=== PATIENT | female | born 1970 | race Caucasian/White ===

== ENCOUNTER → 2016-10-21 17:11 | Outpatient (CLI) | payer BC | END | disposition home or self-care (01) | LOC: D.MAMMO 15:15 | DX: Z12.31 Encounter for screening mammogram for malignant neoplasm of breast (principal) ==

== ENCOUNTER → 2017-02-24 10:27 | Outpatient (CLI) | payer BC | END | disposition home or self-care (01) | LOC: D.MRI 10:27 | DX: M54.31 Sciatica, right side (principal); M54.16 Radiculopathy, lumbar region ==

== ENCOUNTER → 2017-12-15 09:09 | Outpatient (CLI) | payer BC | END | disposition home or self-care (01) | LOC: D.NM 09:09 | DX: R10.11 Right upper quadrant pain (principal) ==

== ENCOUNTER → 2018-02-01 17:05 | Outpatient (CLI) | payer BC | END | disposition home or self-care (01) | LOC: D.CT 17:00 | DX: N28.1 Cyst of kidney, acquired (principal) ==

== ENCOUNTER → 2018-03-11 12:11 | Outpatient (CLI) | payer BC | END | disposition home or self-care (01) | LOC: D.LABREF 12:11 | DX: D72.829 Elevated white blood cell count, unspecified (principal); R31.9 Hematuria, unspecified ==

== ENCOUNTER → 2018-03-17 11:05 | Outpatient (CLI) | payer BC ==
[~2018-03-17 11:05] MED LIST: ADDERALL 30 MG30 MG PO; IBUPROFEN200 MG PO; INDERAL LA80 MG PO; MELATONIN5 MG PO; ROBAXIN500 MG PO
[2018-04-06 08:31] VITALS: BMI 34.0
== END | disposition home or self-care (01) ==
LOC: D.NM 11:05
DX: N13.0 Hydronephrosis with ureteropelvic junction obstruction (principal)

== ENCOUNTER 2018-04-06 07:09 | Day surgery (SDC) | payer BC ==
[~2018-04-06] VITALS: Ht 162.6 cm; Wt 89.8 kg
[2018-04-06 08:11] LABS: HEMATOCRIT 36.6 % (36.0-48.0); HEMOGLOBIN 11.9 g/dL (12-16); MCH 25.5 pg (26.0-34.0); MCHC 32.5 g/dL (31.0-37.0); MCV 78.5 fL (80.0-100.0); MEAN PLATELET VOLUME 9.3 fL (7.4-10.4); RBC 4.66 10x6/uL (4.00-5.40); RDW 15.9 % (11.5-14.5); WBC 7.2 10x3/uL (4.8-10.8)
[2018-04-06 08:31] VITALS: BP 135/79; Ht 162.6 cm; Wt 89.8 kg
[2018-04-06 08:47] LABS: HCG URINE NEGATIVE (NEGATIVE)
--- NOTE | 2018-04-06 13:23 | OP ---
PATIENT NAME: ASHLEY CIFUENTES MEDICAL RECORD: [id number] :66 LOCATION:[facility] ADMISSION DATE: SURGEON: DEMETRIUS SHELL MD DATE OF OPERATION: 04/06/2018 SURGEON: Demetrius Shell MD ANESTHESIA: TIVA by Matias Mistry CRNA DIAGNOSIS: Right ureteropelvic junction (UPJ) obstruction. PROCEDURES: Cystoscopy, right retrograde pyelogram and right ureteral stent insertion, 6-Bangladeshi x 24 cm, without string attached. FINDINGS: Very dilated right renal pelvis with calyceal blunting. Right ureteropelvic junction obstruction with a normal ureter. No ureteral filling defects. ESTIMATED BLOOD LOSS: None. CLINICAL HISTORY: This is a 47-year-old female who had episodic right flank pain. The CT scan showed a very large dilated right extrarenal pelvis with what appears to be a right UPJ obstruction. The radiologist read it as right parapelvic cysts. I do not agree with the radiologist's interpretation. I sent her for a Lasix renal scan. It shows differential GFR of 64% of the overall GFR being from the left kidney and the right kidney contributing 36% of the overall GFR. After Lasix there were signs of obstruction on the right kidney. She comes today to have cystoscopy and right retrograde pyelogram to better define the anatomy. Finally, I will insert a right ureteral stent if she has right UPJ obstruction. The plan is to send her to [place] to have a robotic dismembered pyeloplasty. The patient was given IV sedation. She is not allergic to any medications and she was given Ancef 2 grams IV home service demonstrator to the OR. Fluoroscopy did not reveal any radiodense stones. DESCRIPTION OF PROCEDURE: Cystoscopy was performed using a 21-Bangladeshi cystoscope with 30-degree lens. She has some bladder inflammation, but no bladder tumors were seen. She has single ureteral orifices on each side. A 5-Bangladeshi open-ended ureteral catheter was placed into the right ureteral orifice and a retrograde pyelogram was performed using diluted contrast. The findings are as outlined above. We then inserted a Sensor wire into the right renal pelvis. The ureteral catheter was then removed, leaving the Sensor wire in place. Over the wire, we inserted the 6-Bangladeshi x 24 cm ureteral stent. The string on the distal end of stent was removed prior to inserting the stent. Once the stent was in correct position, the wire was withdrawn entirely. The distal end of the stent was pushed into the bladder using a pusher. Final KUB reveals that the stent is in good position. She will be sent to [facility] for a robotic dismembered pyeloplasty of a right UPJ obstruction. TRANSINT:[id number] Voice Confirmation ID: [id number] DOCUMENT ID: [id number] OPERATIVE REPORT [id number] ASHLEY CIFUENTES ROBERT S MD at 1323 CC: [id number] DICTATION DATE: 04/06/18 1025 DIGITAL PERFORMANCE ANALYST: 04/06/18 1200 [facility] 04/06/18 [facility] [address] [place] [address]
== END 2018-04-06 11:20 | disposition home or self-care (01) ==
LOC: D.OPS 07:09 → D.PAN 09:30 → D.OPS 10:10 → D.PAN 10:10 → D.OPS 11:20 → D.PAN 11:30
PROVIDERS: Anesthesiology
DX: N13.5 Crossing vessel and stricture of ureter without hydronephrosis (principal)

== ENCOUNTER → 2018-04-14 17:48 | Outpatient (CLI) | payer BC ==
[2018-04-06 08:31] VITALS: BMI 34.0
== END | disposition home or self-care (01) ==
LOC: D.LABREF 17:48
DX: R31.9 Hematuria, unspecified (principal); D72.829 Elevated white blood cell count, unspecified

== ENCOUNTER 2019-11-25 15:51 | Emergency (ER) | payer BC ==
[~2019-11-25] VITALS: Ht 162.6 cm; Wt 89.5 kg
[2019-11-25 15:54] VITALS: BP 155/83; Ht 162.6 cm; Wt 89.5 kg
[2019-11-25 16:37] LABS: BASOPHILS 0.1 % (0-2); EOSINOPHILS 0 % (0-7); HEMATOCRIT 40.2 % (36.0-48.0); HEMOGLOBIN 12.9 g/dL (12-16); IMMATURE GRANULOCYTES 1.4 % (0-5); LYMPHOCYTES 8.6 % (15-50); MCH 25.5 pg (26.0-34.0); MCHC 32.1 g/dL (31.0-37.0); MCV 79.6 fL (80.0-100.0); MEAN PLATELET VOLUME 8.8 fL (7.4-10.4); MONOCYTES 7.2 % (2-11); NEUTROPHILS 82.7 % (40-80); PLATELET COUNT 230 10x3/uL (130-400); RBC 5.05 10x6/uL (4.00-5.40); RDW 15.3 % (11.5-14.5); WBC 10.9 10x3/uL (4.8-10.8)
[2019-11-25 16:52] LABS: APTT 24.1 SECONDS (22.8-39.4); INR 0.88 (0.85-1.17)
[2019-11-25 17:41] LABS: CALC OSMOLALITY 273 mosm/kg (275-300); CALCIUM 8.8 mg/dL (8.5-10.1); CARBON DIOXIDE 25.2 mmol/L (21.0-32.0); CHLORIDE - SERUM 102 mmol/L (98-107); CREATININE - SERUM 0.9 mg/dL (0.6-1.3); GLUCOSE 148 mg/dL (74-106); POTASSIUM - SERUM 4.2 mmol/L (3.5-5.1); SODIUM 135 mmol/L (136-145); UREA NITROGEN 16 mg/dL (7-18); eGFR NON AFRICAN AMERICAN 70 mL/min (90-120)
[2019-11-25] MEDS ORDERED: ZPAK PO (17:52)
[2019-11-25] MEDS ORDERED: DECADRON4 MG PO (17:52)
[2019-11-25 17:56] LABS: ALBUMIN 3.3 g/dL (3.4-5.0); ALKALINE PHOSPHATASE 105 U/L (30-120); ALT (SGPT) 24 U/L (10-68); BILIRUBIN - TOTAL 0.13 mg/dL (0.2-1.3); CKMB 0.4 U/L (0.0-3.6); CREATINE KINASE 29 UL (21-215); PRO BNP 54 pg/mL (0-125); PROTEIN - SERUM 7.6 g/dL (6.4-8.2)
[2019-11-25 18:01] LABS: TROPONIN-I < 0.017 ng/mL (0.000-0.060)
== END 2019-11-25 18:38 | disposition home or self-care (01) ==
LOC: D.ER 15:51
PROVIDERS: Family Medicine
DX: U07.1 COVID-19 (principal); R06.00 Dyspnea, unspecified; D72.829 Elevated white blood cell count, unspecified; I10 Essential (primary) hypertension